=== PATIENT | female | born 1970 | race African-American/Black ===

== ENCOUNTER 2019-05-04 14:53 | Emergency (ER) | payer OTHER ==
[~2019-05-04] VITALS: Ht 175.3 cm; Wt 67.1 kg
--- OUTSIDE RECORDS SUMMARY | 2019-05-04 14:55 | XMS REPORT ---
Author Author [facility] Address Unknown Phone Unavailable Care Team Providers Care Regional Safety Manager Name Role Phone Unavailable Unavailable Problems This patient has no known problems. Allergies, Adverse Reactions, Alerts This patient has no known allergies or adverse reactions. Medications This patient has no known medications. Encounters Start Date/Time End Date/Time Encounter Type Admission Type Attending Clinicians Care Facility Care Department Encounter ID 2019-02-19 11:40:00 2019-02-19 11:40:00 Emergency [id number]
[2019-05-04] MEDS ORDERED: NITROGLYCERIN 2% OINT 1 GM PKT TOP STA (14:56)
[2019-05-04] MEDS ORDERED: ASPIRIN 81 MG CHEW TAB PO ONE ×2 (14:56→15:00)
[2019-05-04 15:32] LABS: BASOPHILS % 0.5 % (0.0-1.0); EOSINOPHILS # (AUTO) 0.2 (0.0-0.4); EOSINOPHILS % 3.4 % (0.0-6.0); HEMATOCRIT 38.3 % (34.2-44.1); HEMOGLOBIN 12.5 g/dL (12.0-16.0); LYMPHOCYTES # (AUTO) 1.5 (1.0-3.2); LYMPHOCYTES % 26.4 % (18.0-39.1); MEAN CORPUSCULAR HEMOGLOBIN 31.3 pg (28-32); MEAN CORPUSCULAR HGB CONC 32.6 g/dL (31-35); MEAN CORPUSCULAR VOLUME 95.8 fL (81-99); MONOCYTES # (AUTO) 0.6 (0.2-0.8); NEUTROPHILS # (AUTO) 3.3 (2.1-6.9); NEUTROPHILS % 58.5 % (38.7-80.0); PLATELET COUNT 222 x10e3/uL (140-360); RED CELL DISTRIBUTION WIDTH 11.9 % (11.7-14.4)
[2019-05-04 15:39] LABS: INR 0.92; PROTHROMBIN TIME 12.9 seconds (11.9-14.5)
--- NOTE | 2019-05-04 15:45 | Diagnostic Imaging Report ---
EXAMINATION: CHEST SINGLE (PORTABLE) INDICATION: Chest pain COMPARISON: None FINDINGS: LINES/TUBES:EKG leads overlie the chest. LUNGS:The lungs are well-inflated. No focal consolidation or pulmonary edema. PLEURA:No pleural effusion or pneumothorax. MEDIASTINUM:The cardiomediastinal silhouette appears normal in size and shape. BONES/SOFT TISSUES:No acute osseous injury. ABDOMEN:No free air under the diaphragm. IMPRESSION: No focal pneumonia or pulmonary edema. Signed by: Malika Caldwell MD on 05/04/2019 3:42 PM
[2019-05-04 15:49] LABS: ALANINE AMINOTRANSFERASE 9 IU/L (0-55); ALBUMIN/GLOBULIN RATIO 1.2 (0.8-2.0); ALKALINE PHOSPHATASE 82 IU/L (40-150); ANION GAP 14.2 mmol/L (8-16); BLOOD UREA NITROGEN 19 mg/dL (7-26); BUN/CREATININE RATIO 17 (6-25); CALCIUM 10.1 mg/dL (8.4-10.2); CARBON DIOXIDE 25 mmol/L (22-29); CHLORIDE 104 mmol/L (98-107); CREATINE KINASE 101 IU/L (29-168); CREATININE, SERUM 1.13 mg/dL (0.57-1.11); GLUCOSE 82 mg/dL (74-118); POTASSIUM 4.2 mmol/L (3.5-5.1); SODIUM 139 mmol/L (136-145)
[2019-05-04 15:53] LABS: EST GLOMERULAR FILTRATION RATE > 60 ML/MIN (60-)
[2019-05-04 16:58] LABS: BILIRUBIN,URINE NEGATIVE (NEGATIVE); CLARITY,URINE CLEAR (CLEAR); COLOR,URINE YELLOW (YELLOW); KETONES,URINE NEGATIVE (NEGATIVE); LEUKOCYTE ESTERASE ,URINE NEGATIVE (NEGATIVE); NITRITE,URINE NEGATIVE (NEGATIVE); PROTEIN,URINE DIPSTICK NEGATIVE (NEGATIVE); URINE UROBILINOGEN 0.2 mg/dL (0.2 - 1)
[2019-05-04 17:12] LABS: BACTERIA,URINE RARE /HPF; EPITHELIAL CELLS,URINE RARE /LPF; RBC,URINE 0-5 /HPF (0-5)
[2019-05-04] MEDS ORDERED: KETOROLAC TROMETHAMINE 30 MG/ML VIAL IV ONE (19:32)
[2019-05-04 19:59] LABS: CREATINE KINASE MB 0.7 ng/mL (0-5.0)
--- NOTE | 2019-05-04 20:08 | NUR ---
DR PUENTES CALLED AND REPORTED RESULTS FROM [facility], MARY MCBRIDE SPOKE TO DR PUENTES
[2019-05-04] MEDS ORDERED: MOTRIN200 MG PO (20:11)
[2019-05-04 20:36] VITALS: BP 109/64
--- NOTE | 2019-05-05 00:40 | Consultation ---
DATE OF CONSULTATION: 05/04/2019 Cardiology Consultation REQUESTING PHYSICIAN: Dr. Henderson. REASON FOR CONSULTATION: Chest pain. HISTORY OF PRESENT ILLNESS: This is a 48-year-old woman with history of pleurisy and arrhythmia, who presents with complaints of chest pain. The patient reports she developed sharp chest pain in the left side of her chest on Wednesday. She reports it was 7-8/10 in severity, occurring with deep inspiration. Denied any radiation, shortness of breath, nausea, or diaphoresis. She indicates this was similar to her prior episodes of pleurisy which have previously occurred on the right and in the back. She indicated her chest pain was worse last night and therefore presented to [facility] for further evaluation. She was sent to the ER for further testing. She denies any edema, orthopnea, or PND. Denies any fever, chills, or recent sick contacts. Notes her symptoms are worse when she lays down or bends over. REVIEW OF SYSTEMS: Negative except as per HPI. PAST MEDICAL HISTORY: 1. History of pleurisy. 2. Arrhythmia. PAST SURGICAL HISTORY: Hysterectomy and tonsillectomy. ALLERGIES: PLEASE SEE EMR. MEDICATIONS: Please see medication list. SOCIAL HISTORY: Denies tobacco, alcohol, or illicit drugs. FAMILY HISTORY: Denies. PHYSICAL EXAMINATION: VITAL SIGNS: Temperature 98.2 degrees, pulse 91, respiratory rate 16, blood pressure 141/93, and oxygen saturation 100%. GENERAL: A well-developed and well-nourished woman, in no acute distress. HEENT: Normocephalic and atraumatic. Pupils are equal. No scleral icterus or conjunctival pallor. NECK: Supple. No thyromegaly or cervical lymphadenopathy. No carotid bruits. LUNGS: Clear to auscultation bilaterally. No wheezes or crackles. CARDIOVASCULAR: Normal rate, regular rhythm. No murmur. Normal S1 and S2. ABDOMEN: Soft and nontender. EXTREMITIES: No edema. NEUROLOGIC: Nonfocal. LABORATORY DATA: Sodium 139, potassium 4.2, chloride 104, CO2 of 25, BUN 19, and creatinine 1.13. Troponin is 0.014. BNP 29.9. WBC 5.64, hemoglobin 12.5, hematocrit 38.3, and platelets 222. INR 0.92. EKG sinus bradycardia with sinus rhythm and otherwise normal ECG. IMPRESSION: 1. Chest pain. 2. History of arrhythmia. Echocardiogram has been performed, we will review the images. Repeat troponin, check CRP. Chest pain is atypical. If ruled out for myocardial infarction, recommend further ischemic evaluation as an outpatient. Thank you for this consult. We will continue to follow. Jessie Cowan MD ABS/MODL /[id number]
== END 2019-05-04 20:20 | disposition home or self-care (01) ==
LOC: ER 14:53
DX: R07.89 Other chest pain (principal)
CPT/HCPCS: 36415; 71045; 80053; 81001; 82550; 82553; 83880; 84484; 85025; 85379; 85610; 85730; 86140; 93005; 93306; 99284; J1885